=== PATIENT | female | born 1955 | race Caucasian/White ===

== ENCOUNTER → 2018-01-31 15:54 | Outpatient (CLI) | payer OTHER, SELFPAY ==
[2018-02-03 11:24] LABS: HPV Reflexed? NOT INDICATED
== END ==
PROVIDERS: Visit Provider Obstetrics & Gynecology
DX: Z12.4 Encounter for screening for malignant neoplasm of cervix (principal)
CPT/HCPCS: 88175; G0145

== ENCOUNTER → 2018-03-15 12:17 | Outpatient (CLI) | payer SELFPAY, OTHER ==
--- NOTE | 2018-03-15 12:26 | BI_ITS ---
MAMMOGRAPHY - BILATERAL SCREENING REASON FOR EXAM: Female, 63 years old. Routine annual screening examination. PERTINENT HISTORY: Personal history of breast cancer. Prior left lumpectomy and radiation therapy. TECHNIQUE: Digital bilateral breast gerry (3D mammographic acquisition) in the CC and MLO projections. 2-D mediolateral oblique (MLO) and craniocaudad (CC) views of both breasts were obtained. CAD: Full Field Digital Mammography with Computer Added Detection was performed. COMPARISON: Comparison is made with prior study dated October 13, 2017 and April 14, 2016. FINDINGS: Breast Composition: There are scattered areas of fibroglandular density. There are no dominant masses or suspicious calcifications. Stable deformity and scarring of the left breast secondary to prior lumpectomy and radiation therapy. No other significant abnormalities are identified. There has been no significant change since the prior study. BI/SCREENING MAMM (CAD), BILAT IMPRESSION: Stable bilateral screening mammogram. Yearly follow-up mammogram recommended. (A) ASSESSMENT CATEGORY: BIRADS Category 2: Benign. A letter regarding these results will be sent to the patient by the facility within 30 days. Approximately 10% of breast cancers are not detected by mammography. A normal mammogram should not delay biopsy of a clinically suspicious abnormality. [id number] Electronically Signed: Von Garibay MD at 13:52 EST Tel [phone], Service support ,
== END ==
PROVIDERS: PCP Preventive Medicine Occupational Medicine; Visit Provider Obstetrics & Gynecology
DX: Z12.31 Encounter for screening mammogram for malignant neoplasm of breast (principal)
CPT/HCPCS: 77063; 77067

== ENCOUNTER → 2019-03-16 12:25 | Outpatient (CLI) | payer MEDICARE, SELFPAY ==
--- NOTE | 2019-03-16 12:27 | BI_ITS ---
MAMMOGRAPHY - BILATERAL SCREENING REASON FOR EXAM: Female, 64 years old. Routine annual screening examination. PERTINENT HISTORY: Personal history of breast cancer. Prior left lumpectomy with radiation therapy. TECHNIQUE: Digital bilateral breast darin (3D mammographic acquisition) in the CC and MLO projections. 2-D mediolateral oblique (MLO) and craniocaudad (CC) views of both breasts were obtained. CAD: Full Field Digital Mammography with Computer Added Detection was performed. COMPARISON: Comparison is made with prior study dated March 15, 2018 and April 15, 2017. FINDINGS: Breast Composition: There are scattered areas of fibroglandular density. There are no dominant masses or suspicious calcifications. The patient is status post lumpectomy in the deep slightly upper lateral portion of the left breast. Postoperative changes are seen. This is unchanged. No other significant abnormalities are identified. There has been no significant change since the prior study. BI/SCREEN MAMM (CAD) W/DARIN BILAT IMPRESSION: Stable bilateral screening mammogram. Yearly follow-up mammogram recommended. (A) ASSESSMENT CATEGORY: BIRADS Category 2: Benign. A letter regarding these results will be sent to the patient by the facility within 30 days. Approximately 10% of breast cancers are not detected by mammography. A normal mammogram should not delay biopsy of a clinically suspicious abnormality. [id number] Electronically Signed: Von Garibay, at 14:50 EST , Service support ,
--- NOTE | 2019-03-16 13:01 | BD_ITS ---
STUDY: DUAL ENERGY X-RAY ABSORPTIOMETRY / DXA REASON FOR EXAM: Female, 64 years old. The patient is postmenopausal. Loss of height. TECHNIQUE: Bone Mineral Density (BMD) measurements of lumbar spine and bilateral hips were obtained. COMPARISON: Comparison is made with prior study dated March 28, 2015. FINDINGS: Lumbar Spine (L1-L4): g/cm2 (0.992) / T-score (-1.6) / Z-score (0.0) Findings are suggestive of osteopenia with a moderate fracture risk. Left Femur Total: g/cm2 (0.984) / T-score (-0.2) / Z-score (1.0) Left Femoral Neck: g/cm2 (0.695) / T-score (-2.5) / Z-score (-1.0) Right Femur Total: g/cm2 (0.862) / T-score (-1.2) / Z-score (0.0) Right Femoral Neck: g/cm2 (0.546) / T-score (-3.5) / Z-score (-2.1) The T-Scores on the most recent prior examination were: Lumbar Spine (L1-L4): There has been improvement of bone density since the previous examination. Left Femur Total: which represents a worsening of 4.2%. Right Femur Total: which represents a worsening of 13.4%. BD/Dexa Bone Density Study IMPRESSION: The patient is considered osteoporotic as outlined below according to [place] Organization (WHO) criteria with a high fracture risk. There has been worsening of bone density since the previous examination. Reference Information: The T-score is the number of standard deviations above or below the standard which is normal for young adults at their peak bone mineral density. The World Health Organization (WHO) interprets the T-scores as follows: Above -1 Normal bone density Between -1 and -2.5 Osteopenia Equal to / or below -2.5 Osteoporosis As a practical clinical guideline, osteopenia may be graded as follows: Mild -1 through -1.5 Moderate -1.6 through -2.0 Severe -2.1 through -2.4 The Z-score is the number of standard deviations above or below age-matched controls. A Z-score of less than -1.5 would be considered abnormal. References: 1. NIH Osteoporosis and Related Bone Diseases http://www.osteo.org 2. International Society for Clinical Densitometry http://www.iscd.org 3. National Osteoporosis Foundation http://www.nof.org Electronically Signed: Von Garibay, at 15:16 EST , Service support ,
== END ==
PROVIDERS: Family Provider Preventive Medicine Occupational Medicine; PCP Preventive Medicine Occupational Medicine; Referring Provider Obstetrics & Gynecology; Visit Provider Obstetrics & Gynecology
DX: Z12.31 Encounter for screening mammogram for malignant neoplasm of breast (principal); Z85.3 Personal history of malignant neoplasm of breast; Z78.0 Asymptomatic menopausal state; M81.0 Age-related osteoporosis without current pathological fracture
CPT/HCPCS: 77063; 77067; 77080

== ENCOUNTER → 2020-04-10 15:15 | Outpatient (CLI) | payer OTHER, SELFPAY ==
[2019-06-20 07:56] VITALS: BMI 39.6
--- NOTE | 2020-04-10 15:17 | BI_ITS ---
MAMMOGRAPHY - BILATERAL SCREENING REASON FOR EXAM: Female, 65 years old. Routine annual screening examination. PERTINENT HISTORY: P/H AGE 46, THYROID CANCER AGE 65 LT LUMPECTOMY 2000 WITH RAD TX AND TOMOXIFEN LT MOLE MARKED TECHNIQUE: Digital bilateral breast darin (3D mammographic acquisition) in the CC and MLO projections. 2-D mediolateral oblique (MLO) and craniocaudad (CC) views of both breasts were obtained. CAD: Full Field Digital Mammography with Computer Added Detection was performed. COMPARISON: 03/16/2019 and 03/15/2018 FINDINGS: Breast Composition: The breasts are heterogeneously dense, which may obscure small masses. There are no dominant masses or suspicious calcifications. No other significant abnormalities are identified. BI/SCREEN MAMM (CAD) W/DARIN BILAT IMPRESSION: Stable bilateral screening mammogram. Yearly follow-up mammogram recommended. (A) ASSESSMENT CATEGORY: BIRADS Category 2: Benign. A letter regarding these results will be sent to the patient by the facility within 30 days. Approximately 10% of breast cancers are not detected by mammography. A normal mammogram should not delay biopsy of a clinically suspicious abnormality. [id number] Electronically Signed: Kolton Newman, at 16:29 EST Tel , Service support ,
== END ==
PROVIDERS: PCP Preventive Medicine Occupational Medicine; Referring Provider Nurse Practitioner Family; Visit Provider Nurse Practitioner Family
DX: Z12.31 Encounter for screening mammogram for malignant neoplasm of breast (principal)
CPT/HCPCS: 77063; 77067

== ENCOUNTER 2021-04-15 08:16 | Outpatient (CLI) | payer OTHER, SELFPAY ==
--- NOTE | 2021-04-15 08:21 | BI_ITS ---
MAMMOGRAPHY - BILATERAL SCREENING REASON FOR EXAM: Female, 66 years old. Routine annual screening examination. PERTINENT HISTORY: Personal history of breast cancer. Prior left lumpectomy and radiation treatment. TECHNIQUE: Digital bilateral breast darin (3D mammographic acquisition) in the CC and MLO projections. 2-D mediolateral oblique (MLO) and craniocaudad (CC) views of both breasts were obtained. CAD: Full Field Digital Mammography with Computer Added Detection was performed. COMPARISON: Comparison is made with prior study dated 04/10/2020 and 03/16/2019. FINDINGS: Breast Composition: There are scattered areas of fibroglandular density. There are no dominant masses or suspicious calcifications. The patient is status post lumpectomy in the deep upper lateral aspect of the left breast with resultant postoperative surgical changes and decreased size of the left breast. There has been no change. No other significant abnormalities are identified. There has been no significant change since the prior study. BI/SCRN MAMM (CAD)W/DARIN BILAT IMPRESSION: Stable bilateral screening mammogram. Yearly follow-up mammogram recommended. (A) ASSESSMENT CATEGORY: BIRADS Category 2: Benign. A letter regarding these results will be sent to the patient by the facility within 30 days. Approximately 10% of breast cancers are not detected by mammography. A normal mammogram should not delay biopsy of a clinically suspicious abnormality. [id number] Electronically Signed: Von Garibay MD at 9:37 EST , Service support ,
--- NOTE | 2021-04-15 09:05 | BD_ITS ---
STUDY: DUAL ENERGY X-RAY ABSORPTIOMETRY / DXA REASON FOR EXAM: Female, 66 years old. M810. Patient is postmenopausal. TECHNIQUE: Bone Mineral Density (BMD) measurements of lumbar spine and bilateral hips were obtained. COMPARISON: Comparison is made with prior study dated 03/16/2019. FINDINGS: Lumbar Spine (L1-L4): g/cm2 (0.826) / T-score (-2.0) / Z-score (-0.1) Findings are suggestive of osteopenia with a moderate fracture risk. Left Femur Total: g/cm2 (0.878) / T-score (-0.5) / Z-score (0.8) Left Femoral Neck: g/cm2 (0.611) / T-score (-2.1) / Z-score (-0.5) Right Femur Total: g/cm2 (0.871) / T-score (-0.6) / Z-score (0.8) Right Femoral Neck: g/cm2 (0.588) / T-score (-2.3) / Z-score (-0.7) Left Forearm: g/cm2 (0.533) / T-score (-0.9) / Z-score (0.9) The T-Scores on the most recent prior examination were: Lumbar Spine (L1-L4): There has been worsening of bone density since the previous examination. Left Femur Total: which represents a worsening of 4.5%. Right Femur Total: which represents an improvement of 9%. BD/Dexa Bone Density Study IMPRESSION: The patient is considered osteopenic as outlined below according to [place] Organization (WHO) criteria with a high fracture risk. There has been worsening of bone density since the previous examination. Reference Information: The T-score is the number of standard deviations above or below the standard which is normal for young adults at their peak bone mineral density. The World Health Organization (WHO) interprets the T-scores as follows: Above -1 Normal bone density Between -1 and -2.5 Osteopenia Equal to / or below -2.5 Osteoporosis As a practical clinical guideline, osteopenia may be graded as follows: Mild -1 through -1.5 Moderate -1.6 through -2.0 Severe -2.1 through -2.4 The Z-score is the number of standard deviations above or below age-matched controls. A Z-score of less than -1.5 would be considered abnormal. References: 1. NIH Osteoporosis and Related Bone Diseases www osteo.org 2. International Society for Clinical Densitometry www iscd.org 3. National Osteoporosis Foundation www nof.org Electronically Signed: Von Garibay MD at 9:39 EST , Service support ,
== END 2021-04-15 23:59 | disposition short-term general hospital (02) ==
PROVIDERS: PCP Preventive Medicine Occupational Medicine; Referring Provider Nurse Practitioner Family; Visit Provider Nurse Practitioner Family
DX: Z81.0 Family history of intellectual disabilities (principal); Z78.0 Asymptomatic menopausal state; Z12.31 Encounter for screening mammogram for malignant neoplasm of breast; Z85.3 Personal history of malignant neoplasm of breast
CPT/HCPCS: 77063; 77067; 77080

== ENCOUNTER → 2022-04-30 | Outpatient (CLI) | payer OTHER, SELFPAY ==
--- NOTE | 2022-04-30 08:16 | BI_ITS ---
MAMMOGRAPHY - BILATERAL SCREENING REASON FOR EXAM: Female, 67 years old. Routine annual screening examination. PERTINENT HISTORY: Personal history of breast cancer. Prior left lumpectomy with radiation therapy. History of prior thyroid cancer. TECHNIQUE: Digital bilateral breast darin (3D mammographic acquisition) in the CC and MLO projections. 2-D mediolateral oblique (MLO) and craniocaudad (CC) views of both breasts were obtained. CAD: Full Field Digital Mammography with Computer Added Detection was performed. COMPARISON: Comparison is made with prior study dated 04/15/2021 and 04/10/2020. FINDINGS: Breast Composition: There are scattered areas of fibroglandular density. There are no dominant masses or suspicious calcifications. The patient is status post lumpectomy in the deep upper lateral aspect of the left breast with resultant postoperative scarring. The left breast is once again smaller than the right. No other significant abnormalities are identified. There has been no significant change since the prior study. BI/SCRN MAMM (CAD)W/DARIN BILAT IMPRESSION: Stable bilateral screening mammogram. Yearly follow-up mammogram recommended. (A) ASSESSMENT CATEGORY: BIRADS Category 2: Benign. A letter regarding these results will be sent to the patient by the facility within 30 days. Approximately 10% of breast cancers are not detected by mammography. A normal mammogram should not delay biopsy of a clinically suspicious abnormality. [id number] Electronically Signed: Von Garibay MD at 9:12 EST ,
== END | disposition home or self-care (01) ==
LOC: OPBI 08:12
PROVIDERS: PCP Preventive Medicine Occupational Medicine; Visit Provider Nurse Practitioner Family
DX: Z12.31 Encounter for screening mammogram for malignant neoplasm of breast (principal); Z85.3 Personal history of malignant neoplasm of breast; Z85.850 Personal history of malignant neoplasm of thyroid
CPT/HCPCS: 77063; 77067

== ENCOUNTER → 2023-05-25 | Outpatient (CLI) | payer OTHER, SELFPAY ==
--- NOTE | 2023-05-25 07:06 | BI_ITS ---
MAMMOGRAPHY - BILATERAL SCREENING REASON FOR EXAM: Female, 68 years old. Routine annual screening examination. PERTINENT HISTORY: Personal history of breast cancer. Prior left lumpectomy with radiation treatment. TECHNIQUE: Digital bilateral breast darin (3D mammographic acquisition) in the CC and MLO projections. 2-D mediolateral oblique (MLO) and craniocaudad (CC) views of both breasts were obtained. CAD: Full Field Digital Mammography with Computer Added Detection was performed. COMPARISON: Comparison is made with prior study dated April 30, 2022 and April 15, 2021. FINDINGS: Breast Composition: There are scattered areas of fibroglandular density. There are no dominant masses or suspicious calcifications. Once again, the patient is status post lumpectomy in the deep upper lateral aspect the left breast with resultant postoperative scarring and decreased size of the left breast. No other significant abnormalities are identified. There has been no significant change since the prior study. BI/SCRN MAMM (CAD)W/DARIN BILAT IMPRESSION: Stable bilateral screening mammogram. Yearly follow-up mammogram recommended. (A) ASSESSMENT CATEGORY: BIRADS Category 2: Benign. A letter regarding these results will be sent to the patient by the facility within 30 days. Approximately 10% of breast cancers are not detected by mammography. A normal mammogram should not delay biopsy of a clinically suspicious abnormality. [id number] Electronically Signed: Von Garibay MD at 8:57 EST ,
--- OUTSIDE RECORDS SUMMARY | 2023-05-25 07:06 | XMS RPT_ITS | CCD ---
Author Name Unknown Address [id number] [place] [address] Organization [facility] Care Team Providers Care Puffer Tender Name Role Phone Avendano SURGICAL GARMENT FITTER, Marissa Pauline Unavailable Unavaila ble Avendano SURGICAL GARMENT FITTER, Marissa Pauline Unavailable Unavaila ble Yensho SURGICAL GARMENT FITTER, Char A Unavailable Unavailab TATUM Guillermo DO Primary Care Physician ([phone]) TATUM JOHNSON DO Primary Care Physician ([phone]) Unavailable Primary Care Provider UnavailJEFF Quinn MD Attending Unavailable TATUM JOHNSON DO Primary Care Unavailable JEFF EDMONDSON MD Attending Unavailable TATUM JOHNSON DO Primary Care Unavailable TATUM JOHNSON DO Primary Care Unavailable TATUM JOHNSON DO Attending Unavailable JEFF EDMONDSON MD Attending Unavailable TATUM JOHNSON DO Primary Care Unavailable Allergies Allergy Classification Reported Allergen(s) Allergy Type Date of Onset Reaction(s) Facility (10 sources) lisinopril; Translations: [Lisinopril] Drug Allergy 12-15-2012 Cough (finding), Cough [facility] Work Phone: Medications Current Medications Medication Drug Class(es) Dates Sig (Normalized) Sig (Original) Citracal Calcium + D Slow Release 1200 oral tablet, extended release (3 sources) Start: 07-19-2019 Citracal Calcium + D Slow Release 1200 oral tablet, extended release Dose = 2 tab(s), Oral, qPM, # 80 tab(s), 0 Refill(s) Start Date: 07/19/19 Status: Ordered fluticasone proprionate NASAL 50 mcg/ spray (1 source) Start: 07-19-2019 take 1 dose nasal route once daily in the morning fluticasone proprionate NASAL 50 mcg/ spray Dose = 1 spray(s), Nostril, each, qAM, 0 Refill(s) Start Date: 07/19/19 Status: Ordered hydroCHLOROthiazide 25 mg / olmesartan medoxomil 40 mg oral tablet (7 sources) Thiazide Diuretic, Angiotensin 2 Receptor Melissa Start: 08-18-2021 take 1 tablet by mouth once daily hydrochlorothiaz marysol-olmesartan 25 mg-40 mg oral tablet Dose = 1 tab(s), Oral, qDay, # 90 tab(s), 3 Refill(s), Pharmacy: [id number], 158, cm, 07/15/21 9:25:00 EDT, Height, kg, 07/15/21 9:25:00 EDT, Dosing Weight Start Date: 08/18/21 Status: Ordered Completed/Discontinued Medications Medication Drug Class(es) Dates Sig (Normalized) Sig (Original) 200 actuat albuterol 0.09 mg/actuat metered dose inhaler (3 sources) beta2-Adrenergic Agonist Start: 02-06-2016 take 2 puff(s) by inhalation every four hours as needed PROAIR HFA 108 (90 Base) MCG/ACT AERS INH 2 puffs q4h as needed ALBUTEROL SULFATE [id number] Marissa Avendano LPN ALENDRONATE SODIUM TABS (6 sources) Bisphosphonate take 1 tablet by mouth once daily FOSAMAX TABS One tablet by mouth daily ALENDRONATE SODIUM TABS [id number] Rolan Soto Problems Problem Classification Problem Date Documented Date Episodic/Chronic Asthma (6 sources) Moderate persistent asthma; Translations: [Asthma] Onset: 02-13-2015 02-13-2015 Chronic Cancer of breast (3 sources) History of malignant neoplasm of breast 07-26-2019 Episodic Cancer of thyroid (4 sources) Malignant tumor of thyroid gland; Translations: [Malignant neoplasm of thyroid gland] Onset: 01-13-2023 07-18-2019 Chronic Cancer of thyroid (1 source) History of malignant neoplasm of thyroid 01-13-2022 Episodic Diabetes mellitus with complications (3 sources) Chronic kidney disease stage 3 due to type 2 diabetes mellitus 07-12-2020 Chronic Diabetes mellitus without complication (2 sources) Type 2 diabetes mellitus without complications; Translations: [Type 2 diabetes mellitus without complications] Onset: 01-12-2023 Chronic Disorders of lipid metabolism (3 sources) Hyperlipidemia 01-17-2019 Chronic Esophageal disorders (3 sources) Gastroesophageal reflux disease without esophagitis 01-17-2019 Chronic Essential hypertension (3 sources) Essential hypertension 01-17-2019 Chronic Residual codes; unclassified (6 sources) Obstructive sleep apnea syndrome; Translations: [Obstructive sleep apnea (adult) (pediatric)] Onset: 02-13-2015 02-13-2015 Chronic Unclassified (1 source) Screening for malignant neoplasm of colon ; Translations: [Encounter for screening for malignant neoplasm of colon] 12-21-2012 Results Test Name Value Interpretation Reference Range Facil ity Vital Signs Date Time Vital Sign Value Performing Clinician Facility 02-01-2017 07:09-0400 BMI (Body Mass Index) 39.68 kg/m2 Char Jaimeho SURGICAL GARMENT FITTER [facility] Work Phone: 02-01-2017 07:09-0400 Body Temperature 98 [degF] Char Yensho SURGICAL GARMENT FITTER [facility] Work Phone: 02-01-2017 07:09-0400 BP Diastolic 84 mm[Hg] Char Yensho SURGICAL GARMENT FITTER [facility] Work Phone: 02-01-2017 07:09-0400 BP Systolic 144 mm[Hg] Char Silverionsho SURGICAL GARMENT FITTER [facility] Work Phone: 02-01-2017 07:09-0400 Height 160.02 cm Char Silverionsho SURGICAL GARMENT FITTER [facility] Work Phone: 02-01-2017 07:09-0400 Pulse (Heart Rate) 69 /min Char Yeniho SURGICAL GARMENT FITTER [facility] Work Phone: 02-01-2017 07:09-0400 Respiratory Rate 18 /min Char Silverionsho SURGICAL GARMENT FITTER [facility] Work Phone: 02-01-2017 07:09-0400 Weight 101.61 kg Char Jaimeho SURGICAL GARMENT FITTER [facility] Work Phone: 02-06-2016 11:25-040 Body Temperature 97.52 [degF] Char Silverionsho SURGICAL GARMENT FITTER [facility] Work Phone: 02-06-2016 11:25-0400 BSA (Body Surface Area) 2.02 m2 Char Silverionsho SURGICAL GARMENT FITTER [facility] Work Phone: 02-06-2016 11:25-040 Height 160.02 cm Char Silverionsho SURGICAL GARMENT FITTER [facility] Work Phone: 02-06-2016 11:25-040 Weight 100.91 kg Char Yeniho SURGICAL GARMENT FITTER [facility] Work Phone: Encounters Encounter Date Encounter Type Care Provider Facility Start: 03-18-2023 End: 03-19-2023 ambulatory JEFF EDMONDSON MD Facility:A Start: 01-13-2023 End: 01-18-2023 ambulatory JEFF EDMONDSON MD Facility:A Start: 01-12-2023 End: 01-17-2023 ambulatory TATUM JOHNSON DO Facility:B Start: 07-16-2022 End: 07-17-2022 ambulatory JEFF EDMONDSON MD Facility:B Start: 04-21-2022 Telephone encounter Betina gonzalez APRN.CNP Work Phone: OB/Gynecology Procedures Date Procedure Procedure Detail Performing Clinician Start: 04-15-2021 Mammography Betina gonzalez APRN.CNP Work Phone: Start: 02-13-2015 End: 10-15-2016 Follow Up Appt 1 year Hossein Bear Work Phone: Start: 04-12-2007 Decompression of med donato nerve JEFF EDMONDSON MD Plan of Treatment Date Care Activity Detail Author Start: 04-15-2022 Mammography MAMMOGRAM [facility] Start: 04-12-2022 ADVANCE DIRECTIVE DISCUSSION ADVANCE DIRECTIVE DISCUSSION [facility] Start: 04-12-2022 DEPRESSION ASSESSMENT DEPRESSION ASSESSMENT [facility] Start: 12-11-2021 Influenza vaccination INFLUENZA (#1) [facility] Start: 04-03-2021 COVID-19 VACCINE (4 - Booster for Moderna series) COVID-19 VACCINE (4 - Booster for Moderna series) [facility] Start: 2019 BONE DENSITY BONE DENSITY [facility] Start: 2019 PNEUMOCOCCAL: 65+ (1 - PCV) PNEUMOCOCCAL: 65+ (1 - PCV) [facility] Start: 02-01-2017 End: 02-01-2017 Follow Up Appt 1 year Follow Up Appt 1 year [facility] Work Phone: Start: 02-06-2016 End: 02-06-2016 Follow Up Appt 1 year Follow Up Appt 1 year [facility] Work Phone: Start: 02-13-2015 End: 10-15-2016 Follow Up Appt 1 year Follow Up Appt 1 year [facility] Work Phone: Start: 02-08-2004 SHINGRIX VACCINE (1 of 2) SHINGRIX VACCINE (1 of 2) [facility] Start: 1999 COLOGUARD (FIT-DNA) COLOGUARD (FIT-DNA) [facility] Start: 1999 Colonoscopy COLONOSCOPY [facility] Start: 1999 COLORECTAL CANCER SCREENING COLORECTAL CANCER SCREENING [facility] Start: [address] COLONOGRAPHY [facility] Start: 1999 DIABETES SCREEN DIABETES SCREEN [facility] Start: 1999 FECAL OCCULT BLOOD FECAL OCCULT BLOOD [facility] Start: 1999 LIPID SCREEN LIPID SCREEN [facility] Start: 1999 SIGMOIDOSCOPY SIGMOIDOSCOPY [facility] Start: 1973 Urine microalbumin profile DTAP,TDAP,TD (1 - Tdap) [facility] Start: 02-08-1972 HEPATITIS C SCREENING [facility] Immunizations Immunization Date Immunization Notes Care Provider Fa cility 01-17-2019 influenza, injectabl e, quadrivalent, preservative free; Translations: [Fluarix PF Quadrivalent ] JEFF EDMONDSON MD [facility] Payers Date Payer Category Payer Unknown [id number] 2019 Unknown PRIMETIME PRIMET JAMIR HMO POS [id number] 2019-Present [phone] [address] [place] [address] HMO [id number] 1954 Unknown [id number] 1954 Unknown [id number] 1954 Unknown [id number] 1954 Unknown [id number] Social History Date Type Detail Facility Start: 01-17-2019 End: 03-01-2020 Never smoked tobacco (finding) [facility] Sex Assigned At Female [facility] Start: 03-01-2020 Tobacco use and exposure Smokeless tobacco non-user [facility] Work Phone: Start: 04-17-2021 Alcohol intake Current drinke r of alcohol (finding) [facility] Start: 03-01-2020 History SDOH Alcohol Frequency 2 [facility] Start: 03-01-2020 History SDOH Financial 5 [facility] Start: 03-01-2020 History SDOH Food Worry 1 [facility] Start: 1955 Sex Assigned At Not on file [facility] Note 04-22-2022 Telephone Encounter - Betina Bautista APRN.CNP - 04/22/2022 7:20 AM ESTTelephone Encounter - Melony Holguin RN - 04/21/2022 4:37 PM EST Note Date & Type Note Facility 04-22-2022 Miscellaneous Notes Formattin g of this note might be different from the original. Order signed and given to nursing to be faxed. Betina Bautista APRN.DWIGHT Annual scheduled 04/2023 d/t insurance has to be every 2 years. Order form for mammogram to to sign. Will need faxed to [facility] once complete. No need to call patient back. Melony Holguin RN documented in this encounter [facility] Evaluation + Plan note Note Date & Type Note Facility Evaluation + Plan note Future Appointments Appointment Date:07/11/2021 08:45:00 AM Scheduled Provider:TATUM JOHNSON DO Location:[facility] Appointment Type:PC OV [facility] Evaluation + Plan note Note Date & Type Note Facility Evaluation + Plan note Future Appointments Appointment Date:01/13/2022 10:00:00 AM Scheduled Provider:TATUM JOHNSON DO Location:[facility] Appointment Type:PC OV Diagnostic Tests PendingThyroglobulin 07/28/21 [facility] Evaluation + Plan note Note Date & Type Note Facility Evaluation + Plan note Future Appointments Appointment Date:07/14/2022 09:00:00 AM Scheduled Provider:TATUM JOHNSON DO Location:[facility] Appointment Type:PC OV Diagnostic Tests PendingThyroglobulin 01/28/22 [facility] Hospital course Narrative Note Date & Type Note Facility Hospital course Narrative No data available for this section [facility] Hospital Discharge instructions Note Date & Type Note Facility Hospital Discharge instructions No data available for this section [facility] Progress note Note Date & Type Note Facility Progress note No data available for this section [facility] Summary Purpose Family History No Family History Records FoundNo Family History Records Found Advance Directives No Advanced Directives Records FoundNo Advanced Directives Records Found Additional Source Comments Care Team (unrecognized sect ion and content) Personnel Name: TATUM JOHNSON DO Address: [address] [place] [address] Care Team (unrecognized sect ion and content) Care Team Personnel Name: TATUM JOHNSON DO Position: P4 Physician - Primary Care Med Service: Active Provider Member Role: Primary Care Physician Address: Address: [address] [place] [address] Care Team Related Persons Name: SANDRA YI Source Comments (unrecognize d section and content) In the event this informatio n is protected by the Federal Confidentiality of Alcohol and Drug Abuse Patient Records regulations: The Federal rules restrict any use of the information to criminally investigate or prosecute any alcohol or drug abuse patient.[facility] Reason for Visit (unrecogniz ed section and content) INFORMATION SOURCE (unrecogn ized section and content) DATE CREATED AUTHOR AUTHOR'S ORGANIZ ATION 03/20/[address] [facility] ([place]) FOR RECORDS PERTAINING TO PATIENTS WHO ARE OR HAVE BEEN ENROLLED IN A CHEMICAL DEPENDENCY/SUBSTANCEABUSE PROGRAM, SOME INFORMATION MAY BE OMITTED. This clinical summary was aggregated from multiple sources. Caution should be exercised in using it in the provision of clinical care. This summary normalizes information from multiple sources, and as a consequence, information in this document may materially change the coding, format and clinical context of patient data. In addition, data may be omitted in some cases. CLINICAL DECISIONS SHOULD BE BASED ON THE PRIMARY CLINICAL RECORDS. [facility]. provides no warranty or guarantee of the accuracy or completeness of information in this document.
== END | disposition home or self-care (01) ==
LOC: OPBI 07:04
PROVIDERS: PCP Preventive Medicine Occupational Medicine; Referring Provider Nurse Practitioner Family; Visit Provider Nurse Practitioner Family
DX: Z12.31 Encounter for screening mammogram for malignant neoplasm of breast (principal); Z85.3 Personal history of malignant neoplasm of breast
CPT/HCPCS: 77063; 77067

== ENCOUNTER → 2024-05-26 | Outpatient (CLI) | payer MEDICARE, SELFPAY ==
--- NOTE | 2024-05-26 07:49 | BI_ITS ---
PROCEDURE: SCRN MAMM (CAD)W/DARIN BILAT REASON FOR EXAM: F, Age 69 y/o, personal history of breast cancer. Prior left lumpectomy with radiation treatment. TECHNIQUE: Bilateral screening digital breast tomosynthesis with 2D and 3D images. Computer aided detection. COMPARISON: Prior exam(s) dating back to May 25, 2023.. FINDINGS: There are scattered areas of fibroglandular density. Stable focal area of architectural distortion in the deep central portion of the left breast in keeping with prior lumpectomy. No suspicious masses, areas of developing architectural distortion, or suspicious calcifications. BI/SCRN MAMM (CAD)W/DARIN BILAT IMPRESSION: BI-RADS 2: BENIGN. RECOMMEND ANNUAL MAMMOGRAPHIC SCREENING. Follow-up code: Routine Follow-up The patient will be notified of the results by letter. Reading Location: [id number]
== END | disposition home or self-care (01) ==
PROVIDERS: PCP Preventive Medicine Occupational Medicine; Referring Provider Nurse Practitioner Family; Visit Provider Nurse Practitioner Family
DX: Z12.31 Encounter for screening mammogram for malignant neoplasm of breast (principal)
CPT/HCPCS: 77063; 77067